=== PATIENT | male | born 1990 | race Caucasian/White ===

== ENCOUNTER 2016-12-27 07:44 | Emergency (ER) | payer MEDICAID ==
[2016-12-27 08:41] LABS: ALBUMIN 4.8 g/dL (3.5-5.0); ALKALINE PHOSPHATASE 100 U/L (38-126); ALT 49 U/L (21-72); AST 30 U/L (17-59); BASOPHIL# 0.1 X 10^3uL (0.0-0.1); BASOPHILS 0.6 % (0.0-2.0); BILIRUBIN, DIRECT 0.1 mg/dL (0.0-0.4); BILIRUBIN, TOTAL 0.8 mg/dL (0.2-1.3); BLOOD UREA NITROGEN 14 mg/dL (9-20); CALCIUM 9.7 mg/dL (8.4-10.2); CHLORIDE 103 mmol/L (98-107); CREATININE 0.9 mg/dL (0.7-1.3); EOSINOPHILS 0.5 % (0.0-6.0); EOSINOPHILS# 0.1 X 10^3uL (0.0-0.4); EST GLOMERULAR FILTRATION RATE > 60 mL/min; GLUCOSE 101 mg/dL (70-100); HEMATOCRIT 50.5 % (42.0-54.0); HEMOGLOBIN 17.3 g/dL (14.0-18.0); LIPASE 113 U/L (23-300); LYMPHOCYTES 3.9 % (20.0-40.0); LYMPHOCYTES# 0.6 X 10^3uL (0.8-3.8); MEAN CORPUS. HGB CONCENTRATION 34.3 g/dL (32.0-36.0); MEAN CORPUSCULAR HEMOGLOBIN 28.1 pg (29.0-35.0); MONOCYTES 4.4 % (2.0-10.0); MONOCYTES# 0.7 X 10^3uL (0.2-1.0); NEUTROPHILS# 14.8 X 10^3uL (2.6-6.7); POTASSIUM 4.9 mmol/L (3.5-5.1); RED BLOOD COUNT 6.16 X 10^6uL (4.20-6.10); RED CELL DISTRIBUTION WIDTH 12.1 % (11.5-14.5); SODIUM 142 mmol/L (137-145); TOTAL PROTEIN 8.6 g/dL (6.3-8.2); WHITE BLOOD COUNT 16.3 X 10^3uL (3.9-10.7)
[2016-12-27 08:53] LABS: NEUTROPHILS 90.6 % (54.0-75.0)
[2016-12-27] MEDS ORDERED: LOPERAMIDE HCL 2 MG CAPSULE PO ONE (09:20)
--- NOTE | 2016-12-27 10:12 | ER NURSING DOCUMENTATION ---
Nurse's Notes [facility] Name:Miki Killian Age:26 yrs Sex:Male :1990 Arrival Date:12/27/2016 Time:07:44 Bed3 Private MD:No PCP, Identified Diagnosis:Gastroenteritis vs. Food Poisoning;Dehydration Presentation: 12/27 07:52 Presenting complaint: Patient states: N,V and D. Transition of care: Home. cb 07:52 Acuity: TAY 3 cb 07:52 Method Of Arrival: Private Vehicle cb 08:03 Notified ED Physician of patient's arrival and CC Dr. Cuadra notified. cb Triage Assessment: 07:57 General: Appears in no apparent distress, well groomed, Behavior is cooperative. Pain: cb Complains of pain in right lower quadrant and left lower quadrant Pain currently is 6 out of 10 on a pain scale. 07:57 EENT: No deficits noted. Neuro: Level of Consciousness is awake, alert, Oriented to cb person, place, time, event. 07:57 Cardiovascular: Pulses are 2+ in right radial artery. Respiratory: Airway is patent cb Trachea midline Respiratory effort is even, unlabored, Respiratory pattern is regular, symmetrical. GI: Abdomen is non- distended Bowel sounds present X 4 quads. Abd is soft X 4 quads Abdomen is tender to palpation in right lower quadrant and left lower quadrant Reports diarrhea, vomiting. : Denies burning with urination. Derm: No deficits noted. Musculoskeletal: No deficits noted. Historical: - Allergies: calamine; - Home Meds: 1. None - PMHx: ADD; goiter on Thyroid; - PSHx: CAROTID SURGERY (2006); - Tetanus: unknown. - Ebola Screening: : Patient negative for fever greater than or equal to 101.5 degrees Fahrenheit, and additional compatible Ebola Virus Disease symptoms. Patient denies exposure to infectious person. Patient denies travel to an Ebola-affected area in the 21 days before illness onset. No symptoms or risks identified at this time. . - Immunization history: Flu Vaccine None. - Social history: Smoking status: Patient uses tobacco products, current every day smoker. Patient uses marijuana. Screenin:33 Infectious Disease Risk None. Abuse screen: Denies threats or abuse. Denies injuries cb from another. Nutritional screening: No deficits noted. Assessment: 09:47 Reassessment: Patient mentions that that had to shock the well water @ his house and cb that his niece is also getting sick. Dr Cuadra notified. Stool culture sent . Vital Signs: 07:54 BP 151 / 89; Pulse 92; Resp 22; Temp 98.4; Pulse Ox 93% ; Weight 102.06 kg; Height 5 cb ft. 9 in. (175.26 cm); Pain 6/10; 09:08 BP 163 / 103; Pulse 102; Pulse Ox 94% ; cb 09:47 BP 144 / 90; Pulse 97; Pulse Ox 96% on R/A; cb 07:54 Body Mass Index 33.23 (102.06 kg, 175.26 cm) cb ED Course: 07:45 Patient arrived in ED. kk 07:46 No PCP, Identified is Private Physician. kk 07:52 Destiney Coto, RN is Primary Nurse. cb 07:53 Triage completed. cb 08:29 Sherman Cuadra MD is Attending Physician. sc 09:33 Labs drawn. (by ED staff). Sent per order to lab. Inserted peripheral IV: 18 gauge in cb left antecubital area and blood collected. 09:33 Valuables Remains with patient Patient has correct armband on for positive cb identification. Placed in gown. Bed in low position. Call light in reach. Adult w/ patient. Pulse Ox - RN Monitoring Only NIBP On - RN Monitoring Only. Diet: Patient is NPO. Administered Medications: 08:15 Drug: NS 0.9% 1000 ml; Route: IV; Rate: bolus; Site: left antecubital; cb 09:20 Follow up: IV Status: Completed infusion; IV Intake: 1000ml cb 09:12 Drug: Imodium A-D 4 mg; Route: PO; cb 09:40 Follow up: Response: No adverse reaction cb 09:12 Drug: NS 0.9% 1000 ml; Route: IV; Rate: bolus; Site: left antecubital; cb 10:00 Follow up: IV Status: Completed infusion cb 10:08 Follow up: IV Intake: 1000ml cb Point of Care Testing: Urine Dip: 08:02 pH: 8.5; ; Specific [place]: 1.015; Ketones: Negative; Glucose: Negative; Protein: cb Negative; Leukocytes: Negative; Nitrite: Negative ; Blood: Negative; Bilirubin: Negative ; Urobilinogen: Normal Intake: 09:20 IV: 1000ml; Total: 1000ml. cb 10:08 IV: 1000ml; Total: 2000ml. cb Outcome: 08:59 Discharge ordered by . sc 10:07 Discharged to home ambulatory, with friend. cb 10:07 Condition: stable 10:07 Discharge instructions given to patient, Instructed on discharge instructions, medication usage, Demonstrated understanding of instructions, medications, Prescriptions given X 1. 10:07 IV D/Edgard 10:11 Patient left the ED. cb 12/28 09:11 Discharge F/U Call: Unable to reach: no answer lp 09:27 Discharge F/U Call: Spoke with: patient. Are you having any pain? yes. Pain level is lp Have you filled your prescriptions? yes. Signatures: Destiney Coto RN RN cb Pavlish, Lena, RN RN lp Kifer, Krystal kk Chew, Scott, MD MD vt
--- NOTE | 2016-12-27 10:12 | ER PHYSICIAN DOCUMENTATION ---
Physician Documentation [facility] Name:Miki Killian Age:26 yrs Sex:Male :1990 Arrival Date:12/27/2016 Time:07:44 Bed3 Private MD:No PCP, Identified ED Sherman Lares Disposition: 12/27/16 08:59 Discharged to Home/Self Care. Impression: Gastroenteritis vs. Food Poisoning, Dehydration. - Condition is Good. - Discharge Instructions: DIARRHEA VOMIT Viral 6yAdult - GASTROENTERITIS, Viral [6y-Adult]. - Prescriptions for Zofran 4 mg Oral Tablet - take 1 tablet by ORAL route every 12 hours .; 20 tablet. - Work release form, Medical Reconciliation form form. - Follow up: Private Physician; When: As needed; Reason: Worsening of condition. - Problem is new. - Symptoms have improved. HPI: 12/27 08:56 This 26 yrs old Male presents to ER via Private Vehicle with complaints of sc Nausea/Vomiting. 08:56 The patient presents to the emergency department with diarrhea, that is continuous, 10 sc times since last night, described as watery, with associated abdominal pain, of the abdomen, described as crampy, and does not radiate. Onset: The symptom(s)/episode began/occurred yesterday. Possible causes: unknown. Associated signs and symptoms: Pertinent negatives: anorexia, constipation, dysuria, fever. Severity of symptoms: At their worst the symptoms were moderate. Historical: - Allergies: calamine; - Home Meds: 1. None - PMHx: ADD; goiter on Thyroid; - PSHx: CAROTID SURGERY (2006); - Tetanus: unknown. - Ebola Screening: : Patient negative for fever greater than or equal to 101.5 degrees Fahrenheit, and additional compatible Ebola Virus Disease symptoms. Patient denies exposure to infectious person. Patient denies travel to an Ebola-affected area in the 21 days before illness onset. No symptoms or risks identified at this time. . - Immunization history: Flu Vaccine None. - Social history: Smoking status: Patient uses tobacco products, current every day smoker. Patient uses marijuana. ROS: 08:57 Constitutional: Negative for fever, chills, and weight loss. sc Eyes: Negative for injury, pain, redness, and discharge. ENT: Negative for injury, pain, and discharge. Neck: Negative for injury, pain, and swelling. Cardiovascular: Negative for chest pain, palpitations, and edema. Respiratory: Negative for shortness of breath, cough, wheezing, and pleuritic chest pain. MS/Extremity: Negative for injury and deformity. Skin: Negative for injury, rash, and discoloration. 08:57 Neuro: Negative for headache, weakness, numbness, tingling, and seizure. sc 08:57 Abdomen/GI: Positive for diarrhea. Exam: Constitutional: This is a well developed, well nourished patient who is awake, alert, and in no acute distress. Head/Face: Normocephalic, atraumatic. Eyes: Pupils equal round and reactive to light, extra-ocular motions intact. Lids and lashes normal. Conjunctiva and sclera are non-icteric and not injected. Cornea within normal limits. Periorbital areas with no swelling, redness, or edema. Neck: Trachea midline, no thyromegaly or masses palpated, and no cervical lymphadenopathy. Supple, full range of motion without nuchal rigidity, or vertebral point tenderness. No meningismus. Cardiovascular: Regular rate and rhythm with a normal S1 and S2. No gallops, murmurs, or rubs. Normal PMI, no JVD. No pulse deficits. Respiratory: Lungs have equal breath sounds bilaterally, clear to auscultation and percussion. No rales, rhonchi or wheezes noted. No increased work of breathing, no retractions or nasal flaring. Abdomen/GI: Soft, non-tender, with normal bowel sounds. No distension or tympany. No guarding or rebound. No evidence of tenderness throughout. 08:58 Back: No spinal tenderness. No costovertebral tenderness. Full range of motion. sc 08:58 Constitutional: The patient appears alert, awake. 08:58 ENT: Nose: is normal, Mouth: Oral mucosa: dry. 08:58 Cardiovascular: Rate: normal, Rhythm: regular. 08:58 Abdomen/GI: Inspection: abdomen appears normal, Bowel sounds: normal, Palpation: abdomen is soft and non-tender. 08:58 Skin: Turgor: is poor. Vital Signs: 07:54 BP 151 / 89; Pulse 92; Resp 22; Temp 98.4; Pulse Ox 93% ; Weight 102.06 kg; Height 5 cb ft. 9 in. (175.26 cm); Pain 6/10; 09:08 BP 163 / 103; Pulse 102; Pulse Ox 94% ; cb 09:47 BP 144 / 90; Pulse 97; Pulse Ox 96% on R/A; cb 07:54 Body Mass Index 33.23 (102.06 kg, 175.26 cm) cb MDM: 08:29 Patient medically screened. ri 08:58 Differential diagnosis: viral gastroenteritis, gastroenteritis. Data reviewed: vital sc signs, nurses notes, lab test result(s), and as a result, I will continue to observe the patient, administer IV fluids. Counseling: I had a detailed discussion with the patient and/or guardian regarding: the historical points, exam findings, and any diagnostic results supporting the discharge/admit diagnosis, lab results, to return to the emergency department if symptoms worsen or persist or if there are any questions or concerns that arise at home. 12/27 08:42 Order name: BASIC METABOLIC PANEL; Complete Time: 08:56 [facility] 12/27 08:56 Interpretation: Normal. ri 12/27 08:42 Order name: HEPATIC PANEL; Complete Time: 08:56 [facility] 12/27 08:56 Interpretation: Normal. ri 12/27 08:42 Order name: LIPASE; Complete Time: 08:56 [facility] 12/27 08:56 Interpretation: Normal. ri 12/27 08:54 Order name: CBC AUTO DIF, MDIF/RMOR IF IND; Complete Time: 08:56 [facility] 12/27 08:56 Interpretation: Abnormal: WHITE BLOOD COUNT 16.3; NEUTROPHILS 90.6. ri 12/27 10:15 Order name: FECAL LEUKS (LACTOFERRIN) [facility] 12/27 10:15 Order name: GIARDIA ASSAY [facility] 12/27 12:42 Interpretation: Normal. ri 12/27 10:15 Order name: STOOL CULTURE PANEL [facility] 12/27 12:42 Interpretation: Normal. ri Dispensed Medications: 08:15 Drug: NS 0.9% 1000 ml; Route: IV; Rate: bolus; Site: left antecubital; cb 09:20 Follow up: IV Status: Completed infusion; IV Intake: 1000ml cb 09:12 Drug: Imodium A-D 4 mg; Route: PO; cb 09:40 Follow up: Response: No adverse reaction cb 09:12 Drug: NS 0.9% 1000 ml; Route: IV; Rate: bolus; Site: left antecubital; cb 10:00 Follow up: IV Status: Completed infusion cb 10:08 Follow up: IV Intake: 1000ml cb Point of Care Testing: Urine Dip: 08:02 pH: 8.5; ; Specific [place]: 1.015; Ketones: Negative; Glucose: Negative; Protein: cb Negative; Leukocytes: Negative; Nitrite: Negative ; Blood: Negative; Bilirubin: Negative ; Urobilinogen: Normal Signatures: Destiney Coto RN RN cb Sherman Cuadra MD MD ri
== END 2016-12-27 10:11 | disposition home or self-care (01) ==
LOC: ER 07:44
DX: E86.0 Dehydration (principal); R11.2 Nausea with vomiting, unspecified; R19.7 Diarrhea, unspecified; F17.210 Nicotine dependence, cigarettes, uncomplicated
CPT/HCPCS: 80048; 80076; 83630; 83690; 85025; 87188; 87329; 87899; 96360; 96361; 99284